=== PATIENT | female | born 2000 | race Caucasian/White ===

== ENCOUNTER → 2021-07-01 16:13 | Outpatient (CLI) | payer OTHER, SELFPAY | PROVIDERS: Visit Provider Family Medicine | DX: Z23 Encounter for immunization (principal) ==

== ENCOUNTER 2021-09-02 10:30 | Emergency (ER) | payer OTHER, SELFPAY ==
[2021-09-02 10:30] VITALS: BP 122/73; PULSE 69; RESP 16; TEMP 36.6; O2SAT 100; BMI 22.8
--- NOTE | 2021-09-02 11:42 | EDS_ITS ---
HPI History of Present Illness Chief Complaint: Head Injury Informant: patient Narrative Narrative: Patient is a 20-year-old female presenting with head injury yesterday. Patient states she the top of her head actually had friends had yesterday. She denies any loss of consciousness. Since and she had a mild headache and had photosensitivity, photosensitivity, nausea, fatigue and difficulty concentrating. She states everything to seems blurry. She took Tyle nol yesterday which did help her symptoms. She denies associated numbness or focal weakness. Denies any history of concussion. Denies any medical history. Is not on any anticoagulation denies any known history of bleeding disorders. Is a [employer] student. [facility] Medical History Anxiety Depression Home Medications buspirone 5 mg PO BID 09/02/21 [History Last Taken Unknown] fluoxetine 40 mg PO DAILY 09/02/21 [History Last Taken Unknown] ondansetron 4 mg PO Q8H PRN #10 tab 09/02/21 [Rx Last Taken Unknown] Allergy/AdvReac Type Severity Reaction Status Date / Time Sulfa (Sulfonamide Allergy Other Verified 09/02/21 10:30 Antibiotics) Social History Smoking Status: Never smoker ROS ROS ED Constitutional Constitutional ED: Denies chills or fever(s) Eyes Eyes: Reports blurry vision and other Details: Light sensitivity ; Denies change in vision ENT ENT ED: Denies ear pain, rhinorrhea or sore throat Cardiovascular Cardiovascular: Denies chest pain Respiratory/Chest Respiratory/Chest: Denies dyspnea Gastrointestinal Gastrointestinal: Reports nausea; Denies abdominal pain or vomiting Genitourinary Genitourinary ED: Denies dysuria or hematuria Musculoskeletal Musculoskeletal: Reports neck pain; Denies arthralgias or myalgias Integumentary Denies rash Neurologic Neurologic: Reports headache(s); Denies paresthesias or weakness Psychiatric Psychiatric: Denies anxiety or depression EXAM Physical Exam Const Vital Signs: 09/02/21 10:30 Temperature 97.8 F Temperature Source Temporal Pulse Rate 69 Respiratory Rate 16 Blood Pressure 122/73 H Blood Pressure Mean 89 Pulse Ox 100 Oxygen Delivery Method Room Air Positive well nourished and well developed General Appearance ED: well developed HEENT Reports TM's clear and moist mucous membranes Negative for trauma or tenderness Tympanic Membrane ED: Yes TM's clear Eyes PERRL and EOMs intact bilaterally Eyes Narrative: No nystagmus Neck supple Neck Narrative: No midline tenderness. No step-off sign. Normal range of motion. General: Negative for tenderness Chest Wall inspection of chest normal Resp normal respiratory effort and clear to auscultation bilaterally Cardio regular rate, regular rhythm and no murmurs GI normal to inspection, nondistended, normoactive bowel sounds and non-tender Palpation: soft Extremity normal to inspection General Extremety ED: Negative for edema or tenderness General Extremity: Negative for edema Neuro oriented x3, CN's II-XII intact bilaterally and no sensory deficits noted Neuro Narrative: NIH equals 0 Normal [id number], no truncal ataxia Sensorium / Orientation: alert Motor Exam: strength 5/5 throughout Psych mental status grossly normal Skin no rashes or lesions noted and no wounds MDM MDM MDM Narrative Medical decision making narrative: Patient is evaluated for headache and concussion-like symptoms after head injury yesterday. No IV signs of trauma. Head injury is low risk. She had no loss of consciousness or vomiting. I suspect she has a concussion given her symptoms. I do not think head imaging is indicated. Again she has a normal neurologic exam and has normal vital signs. Patient is counseled on this. She will be given a school note for the next few days. She is instructed to follow-up with [facility]. She is counseled on return precautions. She instructed to take Tylenol at home for symptoms. She is given a prescription for Zofran. Discharge Plan Triage Chief Complaint: Head Injury ED Provider: Coco Pritchard Dx/Rx/DC Orders Clinical Impression: Concussion, Nausea Instructions: ED Concussion Prescriptions: New ondansetron 4 mg tablet,disintegrating 4 mg PO Q8H PRN (Reason: nausea and vomiting) Qty: 10 RF: 0 No Action fluoxetine 40 mg capsule 40 mg PO DAILY RF: 0 buspirone 10 mg tablet 5 mg PO BID RF: 0 Primary Care Provider: Rosa Maria Michael Referrals: Rosa Maria Michael MD [Primary Care Provider] - Activity Restrictions/Additional Instructions: Please follow-up with [facility]. Disposition Disposition: Home, Self Care
== END 2021-09-02 11:51 | disposition home or self-care (01) ==
PROVIDERS: Emergency Provider Emergency Medicine; Visit Provider Emergency Medicine
DX: S06.0X0A Concussion without loss of consciousness, initial encounter (principal); M54.2 Cervicalgia; X58.XXXA Exposure to other specified factors, initial encounter; Z79.899 Other long term (current) drug therapy; F32.A Depression, unspecified; F41.9 Anxiety disorder, unspecified
CPT/HCPCS: 99282

== ENCOUNTER 2022-04-13 11:50 | Emergency (ER) | payer OTHER, SELFPAY ==
[2022-04-13 11:51] VITALS: BP 115/74; PULSE 71; RESP 16; TEMP 36.8; O2SAT 98; BMI 22.8
--- NOTE | 2022-04-13 12:04 | EDS_ITS ---
HPI History of Present Illness Chief Complaint: Upper Extremity Injury Narrative Narrative: Patient's coworker was mopping and she slipped on the wet floor 2 days ago and landed on her right side catching herself with her right hand. No head injury. She has persistent pain in her right wrist but denies weakness numbness or tingling. She is left-hand dominant. PFSH PFS Medical History Anxiety Depression Home Medications buspirone 10 mg tablet 5 mg PO BID 09/02/21 [History Last Taken Unknown] fluoxetine 40 mg capsule 40 mg PO DAILY 09/02/21 [History Last Taken Unknown] ondansetron 4 mg disintegrating tablet 4 mg PO Q8H PRN nausea and vomiting #10 tabs 09/02/21 [Rx Last Taken Unknown] Allergy/AdvReac Type Severity Reaction Status Date / Time Sulfa (Sulfonamide Allergy Other Verified 04/13/22 11:54 Antibiotics) Social History Smoking Status: Never smoker ROS ROS ED ROS Narrative Constitutional: Negative for fever, chills, malaise. Eyes: Negative for visual change. ENT: Negative for sore throat, rhinorrhea. CVS: Negative for palpitations, chest pain. Respiratory: Negative for shortness of breath, cough. GI: Negative for abdominal pain, nausea, vomiting. : Negative for dysuria, hematuria or frequency. Neuro: Negative for motor/sensory dysfunction. Skin: Negative for rash, abscess, or wound. Musc: Positive for wrist pain, trauma. Heme: Negative for easy bruising, bleeding, lymphadenopathy. EXAM Physical Exam Narrative Exam Narrative: CONST: Patient sitting in no acute distress. EYES: Normal inspection. NECK: Normal inspection. RESP: No respiratory distress, CTAB. CVS: Regular rate and rhythm, no murmur, no gallop. SKIN: Color normal, no rash, warm, dry, intact. EXTREMITIES: Normal appearance, mild tenderness over right wrist and pain with extension but she has full range of motion. Normal motor and sensory function in median ulnar and radial distributions, 2+ radial pulses. No other bony tenderness. NEURO: Oriented x4. PSYCH: Normal affect. Const Vital Signs: 04/13/22 11:51 Temperature 98.3 F Temperature Source Temporal Pulse Rate 71 Respiratory Rate 16 Blood Pressure 115/74 Blood Pressure Mean 87 Pulse Ox 98 Oxygen Delivery Method Room Air [facility] Treatment and Re-Evaluation Narrative: Patient fell 2 days ago and injured her right wrist. There are no signs of trauma but she is mildly tender over the wrist. She has full range of motion and is neurovascularly intact. ED attending interpretation of right wrist x-ray shows no fracture or dislocation. Patient counseled on [id number] analgesia and RICE protocol and will follow up with occupational health. Discharge Plan Triage Chief Complaint: Upper Extremity Injury ED Midlevel Provider: Terra Patton ED Provider: Dedrick James Dx/Rx/DC Orders Clinical Impression: Acute pain of right wrist Instructions: ED RICE Prescriptions: No Action fluoxetine 40 mg capsule 40 mg PO DAILY buspirone 10 mg tablet 5 mg PO BID ondansetron 4 mg tablet,disintegrating 4 mg PO Q8H PRN (Reason: nausea and vomiting) Qty: 10 0RF Primary Care Provider: Rosa Maria Michael Referrals: Rosa Maria Michael MD [Primary Care Provider] - Activity Restrictions/Additional Instructions: Take Tylenol or ibuprofen and follow-up with [facility] [employer]. Disposition Disposition: Home, Self Care
--- NOTE | 2022-04-13 12:10 | RAD_ITS ---
STUDY: X-RAY - RIGHT WRIST REASON FOR EXAM: Female, 21 years old. Injury/Pain TECHNIQUE: 3 view(s) of the wrist were obtained. COMPARISON: None. FINDINGS: Normal visualized distal radius and ulna. Normal radiocarpal articulation. Normal distal radioulnar articulation. Normal carpal bones. Normal carpal articulations. Normal carpometacarpal articulation of the thumb. Normal second through fifth carpometacarpal articulations. Normal visualized metacarpal bones. The soft tissue structures are unremarkable. There is no demonstrated acute fracture. RAD/Wrist min 3 Views IMPRESSION: Normal x-ray examination of the wrist. Electronically Signed: Jose Luis Cortez MD at 12:49 EDT Reading Location ID and State: [facility] / [place] , Service support ,
== END 2022-04-13 13:43 | disposition home or self-care (01) ==
LOC: ED 13:06
PROVIDERS: Emergency Provider Student in an Organized Health Care Education/Training Program; Visit Provider Student in an Organized Health Care Education/Training Program
DX: M25.531 Pain in right wrist (principal); F32.A Depression, unspecified; F41.9 Anxiety disorder, unspecified; Z79.899 Other long term (current) drug therapy
CPT/HCPCS: 73110; 99282

== ENCOUNTER 2022-12-09 18:56 | Emergency (ER) | payer OTHER, BC, SELFPAY ==
[2022-12-09 18:57] VITALS: BP 121/78; PULSE 76; RESP 16; TEMP 36.4; O2SAT 99; BMI 24.5
[2022-12-09] MEDS: Ondansetron ODT 4 MG Tablet PO (20:08)
--- NOTE | 2022-12-09 20:15 | CT_ITS ---
STUDY: CT BRAIN WITHOUT CONTRAST REASON FOR EXAM: Female, 22 years old. Head injury RADIATION DOSAGE (If Supplied By Facility): CTDIvol = ( 44.99 ) mGy, DLP = ( 846.73 ) mGycm TECHNIQUE: Transaxial CT imaging of the brain was performed without administration of intravenous contrast material. Individualized dose optimization techniques were used for this CT. COMPARISON: No relevant priors. FINDINGS: Normal soft tissue structures. Normal calvarium. Normal size ventricles and extra-axial spaces for the patient''s age. Normal white matter tracts of the cerebral hemispheres. Normal basal ganglia and thalami. Normal brainstem. Normal cerebellum. There is no intracranial hemorrhage. There are no findings of an acute ischemic infarction. Normal visualized paranasal sinuses. CT/Brain/Head without Contrast IMPRESSION: Normal unenhanced CT scan of the brain. Electronically Signed: Austin Marie MD at 20:36 EDT ,
--- NOTE | 2022-12-09 21:08 | EDS_ITS ---
HPI History of Present Illness Chief Complaint: Head Injury Narrative Narrative: Patient works at [employer]. She states she slipped in some cold brew on the floor and hit her head on a counter. She denies LOC no visual complaints. She did not injure anything else when she fell. No neck or back pain. No lacerations or abrasions. [facility] Medical History Anxiety Concussion Contusion of right wrist Depression Home Medications buspirone 10 mg tablet 5 mg PO BID 09/02/21 [History Last Taken Unknown] fluoxetine 40 mg capsule 40 mg PO DAILY 09/02/21 [History Last Taken Unknown] ondansetron 4 mg disintegrating tablet 4 mg PO Q8H PRN nausea and vomiting #10 tabs 09/02/21 [Rx Last Taken Unknown] ondansetron 4 mg disintegrating tablet 4 mg PO Q8H PRN PRN Nausea #10 tabs 12/09/22 [Rx Last Taken Unknown] Allergy/AdvReac Type Severity Reaction Status Date / Time Sulfa (Sulfonamide Allergy Other Verified 12/09/22 18:56 Antibiotics) Family History no significant family his Surgical History H/O wisdom tooth extraction Social History Smoking Status: Never smoker ROS ROS ED ROS Narrative Lightheadedness Constitutional Constitutional ED: Denies chills, fever(s) or sweats Eyes Eyes: Denies blurry vision or change in vision ENT ENT ED: Denies ear pain or sore throat Cardiovascular Cardiovascular: Denies chest pain, palpitations or racing heartbeat Respiratory/Chest Respiratory/Chest: Denies cough, dyspnea or sputum Gastrointestinal Gastrointestinal: Reports nausea; Denies abdominal pain, constipation, diarrhea or vomiting Genitourinary Genitourinary ED: Denies dysuria, hematuria or urinary frequency Musculoskeletal Musculoskeletal: Denies arthralgias, myalgias or neck pain Integumentary Denies abscess, Abrasions or rash Neurologic Neurologic: Denies headache(s), paresthesias or weakness Psychiatric Psychiatric: Denies anxiety, depression, suicidal ideation or suicidal thoughts Endocrine Endocrinology: Denies polydipsia or polyuria EXAM Physical Exam Const Vital Signs: 12/09/22 18:57 12/09/22 19:08 Temperature 97.6 F L Temperature Source Temporal Pulse Rate 76 Respiratory Rate 16 Respiratory Effort Normal Respiratory Depth Normal Respiratory Pattern Normal Blood Pressure 121/78 H Blood Pressure Mean 92 Pulse Ox 99 Oxygen Delivery Method Room Air Positive well nourished General Appearance ED: NAD AVERY VARELA Narrative: No evidence of basal skull fracture. atraumatic Eyes PERRL and EOMs intact bilaterally Resp normal respiratory effort Cardio regular rhythm Rate: regular rate Neuro oriented x3, CN's II-XII intact bilaterally, moves all extremities, no focal motor deficits and no sensory deficits noted Motor Exam: strength 5/5 throughout Psych mental status grossly normal and thought process normal Skin no rashes or lesions noted and no wounds MDM MDM MDM Narrative Medical decision making narrative: Patient presenting with nausea and lightheadedness after hitting her head on a counter at work. She denies LOC. No focal neurologic deficits or lateralizing signs or symptoms differential includes concussion, intracranial hemorrhage, scalp contusion. Patient given Zofran and CT of the brain was obtained which shows no acute intracranial process. Patient's nausea is improved. She was able to ambulate to the bathroom from the bathroom. Patient was given work restrictions for work. She is given Zofran for home. Return precautions discussed. Impression: 1. Closed head injury 2. Concussion Radiography Diagnostic Testing: Clinical Impression(s) from Imaging Studies Brain CT 12/09/22 20:15 IMPRESSION: Normal unenhanced CT scan of the brain. Electronically Signed: Austin Marie MD at 20:36 EDT , Discharge Plan Triage Chief Complaint: Head Injury ED Provider: Dedrick Jamse Dx/Rx/DC Orders Instructions: ED Concussion Prescriptions: New ondansetron 4 mg tablet,disintegrating 4 mg PO Q8H PRN PRN (Reason: Nausea) Qty: 10 0RF No Action fluoxetine 40 mg capsule 40 mg PO DAILY buspirone 10 mg tablet 5 mg PO BID ondansetron 4 mg tablet,disintegrating 4 mg PO Q8H PRN (Reason: nausea and vomiting) Qty: 10 0RF Disposition Disposition: Home, Self Care
[2022-12-09 21:09] VITALS: RESP 18
== END 2022-12-09 21:10 | disposition home or self-care (01) ==
PROVIDERS: Emergency Provider Student in an Organized Health Care Education/Training Program; Visit Provider Student in an Organized Health Care Education/Training Program
DX: S06.0X0A Concussion without loss of consciousness, initial encounter (principal); W01.198A Fall on same level from slipping, tripping and stumbling with subsequent striking against other object, initial encounter; Y99.0 Civilian activity done for income or pay; Y92.511 Restaurant or cafe as the place of occurrence of the external cause; F41.9 Anxiety disorder, unspecified; Z79.899 Other long term (current) drug therapy
CPT/HCPCS: 70450; 99283